=== PATIENT | male | born 1975 | race Caucasian/White ===

== ENCOUNTER → 2017-09-02 | Outpatient (CLI) | payer BC ==
[~2017-09-02] MED LIST: ACET-1256 PO; NXM/40 PO
[2017-09-02 10:11] LABS: BASO % 0.2 %; BASO ABS # 0.02 K/uL (0-0.2); COMPLETE YES; EOS % 2.5 %; HEMATOCRIT 48.1 % (42-52); IG% 0.4 %; LYMPH % 21.9 %; LYMPH ABS # 2.41 K/uL (1.2-3.4); MEAN CELL VOLUME 81.9 fL (80-100); MEAN CORPUSCULAR HEMOGLOBIN 27.3 pg (25-34); MEAN CORPUSCULAR HGB CONC 33.3 g/dl (32-36); MEAN PLATELET VOLUME 10.3 fL (7.4-10.4); MONO % 7.4 %; NEUT % 67.6 %; PLATELET COUNT 301 K/uL (130-400); RED BLOOD COUNT 5.87 M/uL (4.7-6.1)
[2017-09-02 10:47] LABS: CHOLESTEROL/HDL RATIO 2.5; THYROID STIMULATING HORMONE 3.46 uIu/ml (0.300-4.500)
== END | disposition home or self-care (01) ==
LOC: C.LAB1850 09:17
PROVIDERS: ATTEND Nurse Practitioner Family
DX: R63.5 Abnormal weight gain (principal); G47.00 Insomnia, unspecified; F41.1 Generalized anxiety disorder; Z13.220 Encounter for screening for lipoid disorders; Z13.1 Encounter for screening for diabetes mellitus